=== PATIENT | male | born 1975 | race African-American/Black ===

== ENCOUNTER 2019-11-14 13:46 | Emergency (ER) | payer SELFPAY ==
[~2019-11-14] VITALS: Ht 185.4 cm; Wt 92.0 kg
[2019-11-14] MEDS ORDERED: LEVETIRACETAM 1000MG/100ML 100 ML IV ONE (14:00)
[2019-11-14] MEDS ORDERED: LORAZEPAM 2MG/ML CPJ IM ONE (14:45)
[2019-11-14 14:50] VITALS: BP 123/70
[2019-11-14 15:11] LABS: EOSINOPHILS % 3.9 % (0.0-5.0); HEMATOCRIT. 40.8 % (42.0-52.0); LYMPHOCYTES % 33.7 % (20.0-50.0); MEAN CORPUSCULAR HEMOGLOBIN 26.2 pg (28.0-32.0); MEAN PLATELET VOLUME 7.9 fl (7.4-10.4); MONOCYTES % 7.1 % (2.0-8.0); NEUTROPHILS % 54.3 % (40.0-76.0); PLATELET 260 x1000/uL (130-400); RED BLOOD CELL COUNT 4.97 mill/uL (4.7-6.1); RED CELL DISTRIBUTION WIDTH 14.5 % (11.6-14.6)
[2019-11-14 15:23] LABS: CHLORIDE 107 mEq/L (98-107)
[2019-11-14 15:27] LABS: ETHANOL BLOOD 25 mg/dL
[2019-11-14 15:32] LABS: CARBAMAZEPINE < 0.5 ug/mL (4-12); CREATINE KINASE 615 IU/L (39-308); VALPROIC ACID < 3.0 ug/mL (50-100)
[2019-11-14 15:41] LABS: PHENOBARBITAL 2.2 ug/mL (15.0-40.0)
== END 2019-11-14 14:55 | disposition left against medical advice (07) ==
LOC: ER 13:58 → CANBEDREQ 16:05
DX: G40.909 Epilepsy, unspecified, not intractable, without status epilepticus (principal)
CPT/HCPCS: 36415; 80053; 80156; 80165; 80184; 80185; 80320; 82550; 83880; 84484; 85025; 99283; J1953; J2060; G0480